=== PATIENT | male | born 1990 | race African-American/Black ===

== ENCOUNTER 2023-06-29 15:24 | Emergency (ER) | payer MEDICAID ==
[~2023-06-29] VITALS: Ht 177.8 cm; Wt 81.0 kg
[2023-06-29 15:36] VITALS: O2SAT 98
[2023-06-29 17:55] LABS: BASOPHILS % 0.4 % (0.0-2.0); EOSINOPHILS % 1.9 % (0.0-5.0); HEMATOCRIT. 42.8 % (42.0-52.0); HEMOGLOBIN. 14.4 g/dL (14.0-18.0); LYMPHOCYTES % 26.3 % (20.0-50.0); MEAN CORPUSCULAR HEMOGLOBIN 31.6 pg (28.0-32.0); MEAN CORPUSCULAR HGB CONC 33.7 g/dL (31.0-37.0); MEAN PLATELET VOLUME 7.8 fl (7.4-10.4); MONOCYTES % 7.1 % (2.0-8.0); NEUTROPHILS % 64.3 % (40.0-76.0); PLATELET 199 x1000/uL (130-400); RED BLOOD CELL COUNT 4.56 mill/uL (4.7-6.1); RED CELL DISTRIBUTION WIDTH 12.5 % (11.6-14.6); WHITE BLOOD COUNT 5.2 x1000/uL (4.5-11.0)
[2023-06-29 18:05] LABS: CALCIUM 8.8 mg/dL (8.7-10.4); CARBON DIOXIDE 30 mEq/L (21-32); CHLORIDE 106 mEq/L (98-107); CREATININE 1.2 mg/dL (0.6-1.3); GLUCOSE 116 mg/dL (70-105); POTASSIUM 3.6 mEq/L (3.5-5.1); SODIUM 140 mEq/L (136-145); UREA NITROGEN BLOOD 18 mg/dL (9-23)
[2023-06-29 19:07] VITALS: BP 118/70; PULSE 79; RESP 20; TEMP 98.4
== END 2023-06-29 19:08 | disposition home or self-care (01) ==
LOC: ER 15:24
DX: R60.0 Localized edema (principal)
CPT/HCPCS: 36415; 71045; 80048; 83880; 85025; 93970; 99284